=== PATIENT | female | born 1990 | race Caucasian/White ===

== ENCOUNTER 2022-09-20 13:23 | Outpatient (CLI) | payer BC | END 2022-09-20 13:24 | disposition home or self-care (01) | LOC: CSHWCC 13:23 | PROVIDERS: ATTEND Nurse Practitioner Family | DX: L89.522 Pressure ulcer of left ankle, stage 2 (principal); E11.621 Type 2 diabetes mellitus with foot ulcer; L97.522 Non-pressure chronic ulcer of other part of left foot with fat layer exposed | CPT/HCPCS: 97597; 99213; G0463 ==

== ENCOUNTER 2022-10-04 11:45 | Outpatient (CLI) | payer BC | END 2022-10-04 11:46 | disposition home or self-care (01) | LOC: CSHWCC 11:45 | PROVIDERS: ATTEND Nurse Practitioner Family | DX: E11.621 Type 2 diabetes mellitus with foot ulcer (principal); L97.522 Non-pressure chronic ulcer of other part of left foot with fat layer exposed; L89.522 Pressure ulcer of left ankle, stage 2 | CPT/HCPCS: 99213; G0463 ==

== ENCOUNTER 2022-10-11 09:31 | Outpatient (CLI) | payer BC | END 2022-10-11 09:32 | disposition home or self-care (01) | LOC: CSHWCC 09:31 | PROVIDERS: ATTEND Nurse Practitioner Family | DX: L89.522 Pressure ulcer of left ankle, stage 2 (principal); E11.621 Type 2 diabetes mellitus with foot ulcer; L97.522 Non-pressure chronic ulcer of other part of left foot with fat layer exposed; L97.422 Non-pressure chronic ulcer of left heel and midfoot with fat layer exposed | CPT/HCPCS: 99213; G0463 ==

== ENCOUNTER 2024-03-25 10:28 | Emergency (ER) | payer SELFPAY ==
[2024-03-25] MEDS ORDERED: Acetaminophen 325 MG TAB ONE (10:50)
[2024-03-25] MEDS ORDERED: Benzonatate 100 MG CAP ONE (10:53)
== END 2024-03-25 12:38 | disposition home or self-care (01) ==
LOC: CSHERS 10:28
DX: J06.9 Acute upper respiratory infection, unspecified (principal); E11.9 Type 2 diabetes mellitus without complications; F17.210 Nicotine dependence, cigarettes, uncomplicated
CPT/HCPCS: 71046; 87081; 87428; 87430

== ENCOUNTER 2024-04-20 11:45 | Emergency (ER) | payer SELFPAY | END 2024-04-20 13:33 | disposition home or self-care (01) | LOC: CSHERS 11:45 | DX: S93.401A Sprain of unspecified ligament of right ankle, initial encounter (principal); E11.9 Type 2 diabetes mellitus without complications; F17.210 Nicotine dependence, cigarettes, uncomplicated; X50.1XXA Overexertion from prolonged static or awkward postures, initial encounter | CPT/HCPCS: 99283 ==